=== PATIENT | female | born 1980 | race Two or more races ===

== ENCOUNTER 2017-08-15 12:26 | Emergency (ER) | payer OTHER ==
[~2017-08-15] VITALS: Ht 175.3 cm; Wt 56.7 kg
[2017-08-15 12:54] VITALS: BP 110/70
[2017-08-15] MEDS ORDERED: Lidocaine 1% 10mg/ml/Epi 0.005mg/ml 30ml vial INJ ONE ×2 (12:58→13:00)
[2017-08-15] MEDS ORDERED: BACTRIM DS TAB1 EAC1 ORAL (13:25)
[2017-08-15] MEDS ORDERED: BACTROBAN CR1 APPLIC TOPIC (13:25)
[2017-08-15] MEDS ORDERED: CLINDAMYCIN HC150 MG ORAL (13:25)
[2017-08-15] MEDS ORDERED: IBUPROFEN600 MG ORAL (13:27)
[2017-08-15 14:03] VITALS: BP 108/68
--- NOTE | 2017-08-15 14:55 | Emergency Room Report ---
History of Present Illness General Chief Complaint: Skin Rash/Abscess Source: Patient Present Illness HPI Patient presents to the emergency department today complaining abscess in the left axilla. Patient also has a rash in her right lower extremity. 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 She has multiple allergies to penicillins. She presents here complaining of a rash that started out in her left axilla. She does shave in that area. It appears to be consistent with an abscess and it is draining cloudy fluid. She complains that U erythema and pain in the area. She denies any fever. Of note she does use a same razor blade that she uses on her legs. She has evidence of a rash on her right lower extremity consistent with folliculitis. She has a similar bump on her left buttock. She denies any fever or chest pain or shortness of breath. No other complaints noted. Symptoms noted to be moderate to severe.No other modifying factors. No other associated signs and symptoms. No other complaints were noted. Allergies: Coded Allergies: PENICILLINS (Verified Adverse Reaction, Unknown, Anaphylaxis, 08/15/17) Patient History Past Medical History: other - endocarditis Past Surgical History: none Pertinent Family History: none Social History: Denies: smoking, alcohol use, drug use Last Menstrual Period: 07/29/17 Now: No Reviewed Nursing Documentation: PMH: Agreed; PSxH: Agreed Review of Systems All Other Systems: negative except mentioned in HPI Physical Exam Vital Signs Date Time Temp Pulse Resp B/P (MAP) Pulse Ox O2 Delivery O2 Flow Rate FiO2 08/15/17 12:41 98.4 113 16 110/70 100 Room Air 98.4 Sp02 EP Interpretation: reviewed, normal General Appearance: normal inspection, alert, mild distress Head: atraumatic Eyes: bilateral eye normal inspection ENT: normal ENT inspection, hearing grossly normal, normal voice Neck: normal inspection, full range of motion, supple, no bony tend Respiratory: normal inspection, lungs clear, normal breath sounds, no respiratory distress, no retraction, no wheezing Cardiovascular #1: regular rate, rhythm, no edema Gastrointestinal: normal inspection, normal bowel sounds, non tender, soft, no guarding, no hernia Genitourinary: no CVA tenderness Musculoskeletal: back normal, normal range of motion Neurologic: normal inspection, alert, responsive, speech normal Psychiatric: normal inspection, judgement/insight normal, mood/affect normal Skin: other - left axilla abscess, cellulitis, folliculitis right lower extremity Procedures Incision and Drainage Incision and Drainage : Consent: Emergent Site: lleft axilla Blade Size: 11 I & D Procedure: betadine prep, sterile drapes applied, sterile dressing applied Wound Location: axilla - eft Wound Length (cm): 1 Anesthesia: Lidocaine w/ Epi Volume Anesthetic (ccs): 2 Patient Tolerated: Well Complications: None Medical Decision Making Diagnostic Impression: Primary Impression: Folliculitis Additional Impression: Abscess ER Course Patient presents to emergency department today complaining of left low of swelling. Differential considered abscess, cellulitis. This required incision and drainage. Area was drained. Pus was expressed patient told procedure without difficulty. Patient also had evidence of folliculitis in the legs for the patient benefit from antibiotics. Patient was started on clindamycin and Bactrim. Patient was given up her prescription for topical Bactroban.Patient is advised to follow up with primary doctor in 2-3 days and return the emergency room for any worsening symptoms and as needed. Last Vital Signs Date Time Temp Pulse Resp B/P (MAP) Pulse Ox O2 Delivery O2 Flow Rate FiO2 08/15/17 14:03 209.1 98 16 108/68 100 Room Air Status: improved Disposition: HOME, SELF-CARE Condition: Stable Scripts Ibuprofen* (MOTRIN*) 600 Mg Tablet 600 MG ORAL Q8H PRN for For Pain, #15 TAB 0 Refills Prov: GERRY COMBS M.D. 08/15/17 Mupirocin Calcium (Bactroban) 15 Gm Cream..g. 1 APPLIC TOPIC THREE TIMES A DAY for 10 Days, GM Prov: GERRY COMBS M.D. 08/15/17 Clindamycin Hcl* (CLINDAMYCIN HCL*) 150 Mg Capsule 150 MG ORAL FOUR TIMES A DAY for 10 Days, CAP Prov: GERRY COMBS M.D. 08/15/17 Trimethoprim/Sulfamethoxazole 160/800* (BACTRIM DS TABLET*) 1 Each Tablet 1 TAB ORAL Q12H, #20 TAB 0 Refills Prov: GERRY COMBS M.D. 08/15/17 Referrals: NOT CHOSEN IPA/,REFERRING (PCP) Patient Instructions: Abscess, Folliculitis GERRY COMBS M.D. Aug 15, 2017 14:55
== END 2017-08-15 14:05 | disposition home or self-care (01) ==
LOC: EMR 13:45
DX: L73.9 Follicular disorder, unspecified (principal); L02.412 Cutaneous abscess of left axilla
CPT/HCPCS: 10060; 99284